=== PATIENT | male | born 1965 | race Caucasian/White ===

== ENCOUNTER 2016-10-01 20:41 | Inpatient (IN) | payer MEDICARE ==
--- NOTE | ~2016-10-01 | PN ---
Unit #: [id number] #: [id number] Patient: GISSEL VYAS JR [id number] [facility] [address] [place] [address] [id number] I MR#: [id number] NAME: GISSEL VYAS JR ROOM: P121 Age: 50 Sex: M Admission Date: 10/01/2016 : 1965 Attending Physician: Juarez Dobson M.D. Admitting Physician: Juarez Dobson M.D. Primary Care Physician: Primary Care Physician Tawanna URBINA PROGRESS NOTES DATE 10/04/2016 DISCUSSION The patient remains seclusive to room but is compliant with medications and alvarado routine. His mood is less dysphoric, and he seems to be approaching his psychiatric baseline. Dictated by... Juarez Dobson M.D. CB/bzg TD: 10/04/2016 12:56 JOB #: [id number] [facility] PROGRESS NOTES Page 1 of 1 X Juarez Dobson MD X PROGRESS NOTE
--- NOTE | ~2016-10-01 | PA ---
Unit #: [id number] #: [id number] Patient: GISSEL VYAS JR [id number] [place] [address] [id number] I MR#: [id number] NAME: GISSEL VYAS JR ROOM: P121 Age: 50 Sex: M Admission Date: 10/01/2016 : 1965 Date of Assessment: 10/02/2016 Attending Physician: Juarez Dobson M.D. Admitting Physician: Juarez Dobson M.D. Primary Care Physician: Primary Care Physician No PSYCHIATRIC ASSESSMENT IDENTIFYING INFORMATION The patient is a 50-year-old white male well-known to this physician from multiple previous admissions to this facility as well as [facility]. He is admitted with recurrent delusional paranoid thinking following a period of medication noncompliance. INFORMANT(S) Patient. RELIABILITY Fair. CHIEF COMPLAINT None given. HISTORY OF PRESENT ILLNESS The patient is a 50-year-old white male admitted after he had presented to this facility reporting the delusional belief that his guardians at [facility] are preventing him from being able to live. More to the point, the patient admits that he has been noncompliant with prescribed psychotropic medications for some time. During his last hospitalization at [facility], we had attempted to start the patient on Abilify Maintena but he had refused initiation of this medication. The patient continues to report positive suicidal ideation and hopelessness and paranoid delusional thinking during today's interview. He complains of recent poor sleep. He denies any loss of appetite. For a more complete history of present illness, please refer to previous dictated notes from [facility] attached to the chart. PAST PSYCHIATRIC HISTORY Reviewed, no changes. FAMILY HISTORY/SOCIAL HISTORY Reviewed, no changes. MEDICAL HISTORY No changes. MEDICATION HISTORY 1. Abilify. 2. Depakote ER. 3. Prozac. 4. Senokot. Unit #: [id number] #: [id number] Patient: GISSEL VYAS JR 5. Flexeril. ALLERGIES Risperdal. MENTAL STATUS EXAM At this time, reveals the patient to be a well-developed, well-nourished somewhat disheveled white male appearing stated age. He is in no apparent physical distress at time of examination. He is awake, alert and oriented in all spheres. His mood is dysphoric. His affect flat. Speech is generally relevant and coherent. There are no gross deficits in memory or cognition noted. Intelligence is judged to be in the average range based on fund of knowledge. The patient is generally cooperative during interview. He is still reporting positive suicidal ideation. He denies homicidal ideation. He reports positive paranoid delusional thinking. His judgement and insight appear to be somewhat impaired. ASSETS AND LIABILITIES Patient's assets to be assessed. Liabilities, lack of resources. ADMITTING DIAGNOSIS Schizoaffective disorder. PSYCHIATRIC PLAN/TREATMENT GOALS The patient remains hospitalized for safety and stabilization. We will restart medications. Again, I have spoken with the patient regarding possible initiation of depo medication but once again the patient states that he does not wish to pursue this route of treatment. ESTIMATED LENGTH OF STAY Five to seven days. Dictated by... Juarez Dobson M.D. CHERYL/erika TD: 10/02/2016 16:03 JOB #: [id number] PSYCHIATRIC ASSESSMENT Page 1 of 1 X Juarez Dobson MD X PSYCHIATRIC ASSESSMENT
--- NOTE | ~2016-10-01 | PN ---
Unit #: [id number] #: [id number] Patient: GISSEL VYAS JR [id number] [facility] [address] [place] [address] [id number] I MR#: [id number] NAME: GISSEL VYAS JR ROOM: P121 Age: 50 Sex: M Admission Date: 10/01/2016 : 1965 Attending Physician: Juarez Dobson M.D. Admitting Physician: Juarez Dobson M.D. Primary Care Physician: Primary Care Physician Tawanna URBINA PROGRESS NOTES DATE 10/05/2016 DISCUSSION The patient seems a bit more ambivalent today regarding possible discharge but is more active within the therapeutic milieu. His mood seems a bit more dysphoric and apprehensive regarding discharge when seen today but he is reporting no suicidal ideation. He continues to express his displeasure at his current living situation specifically he has been anxious as related to his guardianship situation. Dictated by... Juarez Dobson M.D. CB/abraham TD: 10/06/2016 01:23 JOB #: [id number] [facility] PROGRESS NOTES Page 1 of 1 X Juarez Dobson MD X PROGRESS NOTE
--- NOTE | ~2016-10-01 | HP ---
Unit #: [id number] #: [id number] Patient: EDUARDO VYAS JR [id number] [place] [address] [id number] I MR#: [id number] NAME: EDUARDO VYAS JR ROOM: P121 Age: 50 Sex: M Admission Date: 10/01/2016 : 1965 Attending Physician: Juarez Dobson M.D. Admitting Physician: Juarez Dobson M.D. Primary Care Physician: Primary Care Physician No HISTORY AND PHYSICAL HISTORY OF PRESENT ILLNESS Eduardo is a 50 year old admitted to [address] [place] [address] with delusional, paranoid thinking. He is a poor historian so his history is taken from his chart. PAST MEDICAL HISTORY Nothing significant. PAST SURGICAL HISTORY Nothing reported. ALLERGIES Risperdal. SOCIAL HISTORY No history of cigarettes, alcohol or illicit drug use. FAMILY HISTORY Medically noncontributory. REVIEW OF SYSTEMS He does not answer all questions appropriately. There are no reports of nausea, vomiting or diarrhea. He has had no cough or increased temperature. No complaints or indications or chest pain. CURRENT MEDICATIONS 1. Prozac 20 mg daily. 2. Abilify 15 mg daily. 3. Senokot 17.2 q.h.s. 4. Depakote 500 mg q.h.s. 5. Flexeril 5 mg t.i.d. 6. Milk of Magnesia p.r.n. 7. Maalox p.r.n. 8. Tylenol p.r.n. PHYSICAL EXAMINATION GENERAL: Alert, well-nourished, in no apparent distress. VITAL SIGNS: Blood pressure 142/92, heart rate 80, respirations 16, temperature 98.6. SKIN: Warm and dry without rash or lesion. HEENT: Normocephalic. TMs not viewed. Oral and nasal passages clear. Conjunctivae clear. PERRLA. EOMs intact. NECK: Supple without lymphadenopathy or thyromegaly. HEART: Regular rate and rhythm without murmur. Unit #: [id number] #: [id number] Patient: EDUARDO VYAS JR LUNGS: Clear. ABDOMEN: Soft, nontender. : Not done. EXTREMITIES: No evidence of cyanosis, clubbing or edema. Moves all without focal deficit. NEUROLOGICAL: Unable to complete extended exam. He does move all extremities without focal deficit. 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 IMPRESSION Psychiatric admission. RECOMMENDATIONS PSYCHIATRIC: Per psychiatrist. MEDICAL: See no contraindications to participate in facility's activities. MEDICAL PROGNOSIS Good. MEDICAL CONDITION Stable. Dictated by... Jodee Garcia P.A.-C. for Angel Huff/erika TD: 10/02/2016 18:13 JOB #: [id number] HISTORY AND PHYSICAL Page 1 of 1 X Jodee Garcia X HISTORY AND PHYSICAL
--- NOTE | ~2016-10-01 | PN ---
Unit #: [id number] #: [id number] Patient: GISSEL VYAS JR [id number] [facility] [address] [place] [address] [id number] I MR#: [id number] NAME: GISSEL VYAS JR ROOM: P121 Age: 50 Sex: M Admission Date: 10/01/2016 : 1965 Attending Physician: Juarez Dobson M.D. Admitting Physician: Juarez Dobson M.D. Primary Care Physician: Primary Care Physician Tawanna URBINA PROGRESS NOTES DATE 10/03/2016 DISCUSSION The patient is abed and seclusive to room. He reports ongoing suicidal ideation and paranoia related to his current living situation. Dictated by... Juarez Dobson M.D. CB/erika TD: 10/03/2016 15:23 JOB #: [id number] [facility] PROGRESS NOTES Page 1 of 1 X Juarez Dobson MD X PROGRESS NOTE
--- NOTE | ~2016-10-01 | DS ---
Unit #: [id number] #: [id number] Patient: GISSEL VYAS JR [id number] [facility] [address] [place] [address] [id number] I MR#: [id number] NAME: GISSEL VYAS JR ROOM: P121 Age: 50 Sex: M Admission Date: 10/01/2016 : 1965 Discharge Date: 10/06/2016 Attending Physician: Juarez Dobson M.D. Primary Care Physician: Primary Care Physician No DISCHARGE SUMMARY REASON FOR ADMISSION The patient is a 50-year-old white male with a history of schizoaffective disorder, admitted voicing positive suicidal ideation and expressing ongoing displeasure at his current financial and guardianship situation. HOSPITAL COURSE The patient was admitted to the [address] [place] [address] unit and placed on suicide precautions. He was continued on previously prescribed medications and no medication changes were really undertaken during the patient's brief stay in the hospital. The patient did participate actively within the therapeutic milieu and showed significant improvement during his brief stay in the hospital, being more active within the therapeutic milieu than as generally the case. During hospitalizations at [facility], where this physician has treated the patient multiple occasions in the past. Further, he was pleasant and cooperative in interactions with peers and staff and fully compliant, although when asked, he again declined initiation of depot Abilify and did admit that prior to admission, he had been noncompliant with medications. By 10/06/2016, the patient appeared to be at or near his psychiatric baseline and discharge was ordered. FINAL DIAGNOSIS Schizoaffective disorder. DISPOSITION ON DISCHARGE The patient is discharged on the following medications; Flexeril 5 mg t.i.d. for muscle relaxation, Senokot 17.2 mg nightly for constipation, Prozac 20 mg daily for depression, Depakote 500 mg at bedtime for mood stabilization, Abilify 15 mg at bedtime for mood stabilization. DISCHARGE INSTRUCTIONS No dietary or physical restrictions were placed on the patient at the time of discharge. FOLLOWUP Followup will take place through the auspices of community mental health resources. PROGNOSIS The patient's prognosis is considered fair. Dictated by... Juarez Dobson M.D. Unit #: [id number] #: [id number] Patient: GISSEL VYAS JR CB/modl TD: 10/07/2016 01:08 JOB #: [id number] DISCHARGE SUMMARY Page 1 of 1 X uJarez Dobson MD DISCHARGE SUMMARY
[2016-10-02 10:21] LABS: BASOPHIL% 0.3 % (0-2.5); EOSINOPHIL# 0.1 X10e3 (0-0.7); EOSINOPHIL% 0.9 % (0.0-7.0); HEMATOCRIT 47.1 % (38.0-50.0); HEMOGLOBIN 15.5 gm/dL (13.0-16.0); LYMPHOCYTE# 1.7 X10e3 (1.0-3.5); LYMPHOCYTE% 19.7 % (17.0-45.0); MEAN CELL VOLUME 90.3 FL (83-96); MEAN CORPUSCULAR HEMOGLOBIN 29.7 PG (28-34); MEAN CORPUSCULAR HGB CONC 32.9 g/dL (30-36); MEAN PLATELET VOLUME 9.3 FL (6.5-11.5); MONOCYTE# 1.1 X10e3 (0-1.0); MONOCYTE% 12.3 % (3.0-12.0); NEUTROPHIL# 5.8 X10e3 (1.5-7.1); NEUTROPHIL% 66.8 % (40-75); PLATELET COUNT 303 X10e3 (140-420); RED BLOOD COUNT 5.21 X10e (3.90-5.60); RED CELL DISTRIBUTION WIDTH 14.4 % (11.0-15.5); WHITE BLOOD COUNT 8.7 X10e3 (4.0-10.5)
[2016-10-02 10:22] LABS: ALBUMIN SERUM 4.5 g/dL (3.5-5.0); BILIRUBIN,TOTAL 0.9 mg/dL (0.2-2.0); CALCIUM SERUM 9.4 mg/dL (8.4-10.2); CREATININE SERUM 0.8 mg/dL (0.6-1.4); GLOM FILT RATE Estimated 105.7 mL/min (>60); POTASSIUM 3.9 mmol/L (3.5-5.1); PROTEIN TOTAL SERUM 7.4 g/dL (6.0-8.3)
[2016-10-02 10:28] LABS: THYROID STIMULATING HORMONE 1.41 uIU/ml (0.34-5.60)
[2016-10-02 10:29] LABS: DIFF IND NO
[2016-10-02 10:35] LABS: FREE THYROXIN (T4) 1.31 ng/dL (0.58-1.64)
== END 2016-10-06 23:10 | disposition home or self-care (01) | DRG 885 ==
LOC: P1S 22:14
PROVIDERS: Specialist
DX: F25.9 Schizoaffective disorder, unspecified (principal); R45.851 Suicidal ideations; Z91.14 Patient's other noncompliance with medication regimen; Z88.8 Allergy status to other drugs, medicaments and biological substances
CPT/HCPCS: 80053; 84439; 84443; 85025; J2550